=== PATIENT | female | born 1990 | race American Indian/Alaskan Native ===

== ENCOUNTER 2020-04-10 21:07 | Emergency (ER) | payer SELFPAY ==
[2020-04-10] MEDS ORDERED: HYDROcodone/ACETAMINOPHEN 5-325 MG TAB PO ONE (22:05)
--- NOTE | 2020-04-10 22:14 | Emergency Department Report ---
ED Fall HPI - General Chief Complaint: Fall Stated Complaint: SLIP AND FALL GROIN PAIN RT SIDE PAIN Time Seen by Provider: 04/10/20 21:58 Source: patient, EMS Mode of arrival: Wheelchair - History of Present Illness Initial Comments: Ms. Murphy is a 30 y/o aaf with presents for right pelvic and hip pain s/p GLF , slip and fall in store, there was no loc, pt was ambulatory after fall, arrived to ed via pov, there is no numbness, no tingling, no hematuria, no deformity, gait is steady. pain described as 5/10 aching, pt is ambulatory with minimal gait disturbance. T:98.2, P111, 18, bp:151/121 Complaint: fall Onset/Timin -: hour(s) Fall From: standing When Fall Occurred: 1-3 hours [employer] Fall Witnessed: yes, by family Place Fall Occurred: other ([facility]) Loss of Consciousness: none Prolonged Down Time?: no Symptoms Prior to Fall: none Location: pelvis Severity: moderate Severity scale (0 -10): 4 Quality: aching Context: tripped/slipped - Related Data Previous Rx's Medication Instructions Recorded Last Taken Type Cyclobenzaprine [Flexeril] 10 mg PO TID PRN #30 tablet 04/10/20 Unknown Rx Naproxen 500 mg PO BID PRN #30 tablet 04/10/20 Unknown Rx Allergies Allergy/AdvReac Type Severity Reaction Status Date / Time No Known Allergies Allergy Unverified 04/10/20 21:13 ED Review of Systems ROS: Stated complaint: SLIP AND FALL GROIN PAIN RT SIDE PAIN Other details as noted in HPI Constitutional: denies: chills, fever Eyes: denies: eye pain, eye discharge, vision change ENT: denies: ear pain, throat pain Respiratory: denies: cough, shortness of breath, wheezing Cardiovascular: denies: chest pain, palpitations Endocrine: no symptoms reported Gastrointestinal: denies: abdominal pain, nausea, diarrhea Genitourinary: denies: urgency, dysuria, frequency, hematuria, discharge Musculoskeletal: denies: back pain, joint swelling, arthralgia, myalgia Skin: denies: rash, lesions Neurological: denies: headache, weakness, paresthesias Psychiatric: denies: anxiety, depression Hematological/Lymphatic: denies: easy bleeding, easy bruising ED Past Medical Hx - Past Medical History Hx Hypertension: Yes Hx Asthma: Yes - Surgical History Past Surgical History?: No - Social History Smoking Status: Never Smoker Substance Use Type: None - Medications Home Medications: Home Medications Medication Instructions Recorded Confirmed Last Taken Type Cyclobenzaprine [Flexeril] 10 mg PO TID PRN #30 tablet 04/10/20 Unknown Rx Naproxen 500 mg PO BID PRN #30 tablet 04/10/20 Unknown Rx ED Physical Exam - General Limitations: No Limitations General appearance: alert, in no apparent distress - Head Head exam: Present: normocephalic. Absent: normal inspection - Eye Eye exam: Present: normal appearance, PERRL, EOMI Pupils: Present: normal accommodation - ENT ENT exam: Present: mucous membranes moist - Neck Neck exam: Present: normal inspection, full ROM. Absent: tenderness, lymphadenopathy, thyromegaly - Respiratory Respiratory exam: Present: normal lung sounds bilaterally. Absent: respiratory distress, wheezes, stridor, chest wall tenderness - Cardiovascular Cardiovascular Exam: Present: regular rate, normal rhythm, normal heart sounds. Absent: systolic murmur, diastolic murmur, rubs, gallop - GI/Abdominal GI/Abdominal exam: Present: soft, normal bowel sounds. Absent: distended, tende rness, bruit, hernia - Rectal Rectal exam: Present: deferred - Extremities Exam Extremities exam: Present: normal inspection, full ROM, tenderness (right hip ), normal capillary refill - Back Exam Back exam: Present: normal inspection, full ROM. Absent: tenderness, CVA tenderness (R), CVA tenderness (L), muscle spasm, paraspinal tenderness, vertebral tenderness, rash noted - Neurological Exam Neurological exam: Present: alert, oriented X3, CN II-XII intact, normal gait, reflexes normal. Absent: motor sensory deficit - Expanded Neurological Exam Expanded Patient oriented to: Present: person, place, time Speech: Present: fluid speech Motor strength exam: RUE: 5, LUE: 5, RLE: 5, LLE: 5 Best Eye Response (Claudette): (4) open spontaneously Best Motor Response (Claudette): (6) obeys commands Best Verbal Response (Claudette): (5) oriented [place] Total: 15 - Psychiatric Psychiatric exam: Present: normal affect, normal mood - Skin Skin exam: Present: warm, dry, intact, normal color. Absent: rash ED Course Vital Signs 04/10/20 04/10/20 21:13 23:10 Temperature 98.2 F 98.3 F Pulse Rate 111 H 86 Respiratory 18 18 Rate Blood Pressure 153/121 Blood Pressure 130/80 [Left] O2 Sat by Pulse 100 100 Oximetry ED Medical Decision Making - Radiology Data Radiology results: report reviewed, image reviewed Findings Reporting MD: Stacy Baird Dictation Time: April 10, 2020 21:50 Bee Worker: Not available Photographer Finish Date: EXAMINATION: Pelvic radiograph, one view CLINICAL INFORMATION: Pelvic pain after fall COMPARISON: None. FINDINGS: There is no evidence of displaced pelvic fracture or hip dislocation on today's single view. An IUD overlies the midline pelvis. IMPRESSION: No radiographic evidence of displaced pelvic fracture. Signer Name: Stacy Baird MD Signed: 04/10/2020 9:50 PM Workstation Name: [id number] - Medical Decision Making xray pelvis normal no fracture no soft tissue abnormality, pain is improved, plan: dc to home with rx for nsaids, muscle relaxant, follow up with primary care doctor in 2-3 days, pt verbalized agreement and understanding of same. vital signs improved. Critical care attestation.: If time is entered above; I have spent that time in minutes in the direct care of this critically ill patient, excluding procedure time. ED Disposition Clinical Impression: Strain of right groin Disposition: DC-01 TO HOME OR SELFCARE Is pt being admited?: No Does the pt Need Aspirin: No Condition: Stable Instructions: Groin Strain (ED) Prescriptions: Cyclobenzaprine [Flexeril] 10 mg PO TID PRN #30 tablet PRN Reason: Spasms Naproxen 500 mg PO BID PRN #30 tablet PRN Reason: pain Referrals: MELANY ARDON MD [Staff Physician] - 3-5 Days MATTEO FERRER MD [Staff Physician] - 3-5 Days Forms: Work/School Release Form(ED) Time of Disposition: 23:19
--- NOTE | 2020-04-10 22:54 | XRay Report ---
EXAMINATION: Pelvic radiograph, one view CLINICAL INFORMATION: Pelvic pain after fall COMPARISON: None. FINDINGS: There is no evidence of displaced pelvic fracture or hip dislocation on today's single view . An IUD overlies the midline pelvis. IMPRESSION: No radiographic evidence of displaced pelvic fracture. Signer Name: Stacy Baird MD Signed: 04/10/2020 10:50 PM Workstation Name: [id number] [email or web address]
[2020-04-10 23:10] VITALS: BP 130/80
== END 2020-04-10 23:40 | disposition home or self-care (01) ==
LOC: ED 21:07
DX: S39.011A Strain of muscle, fascia and tendon of abdomen, initial encounter (principal); X58.XXXA Exposure to other specified factors, initial encounter; Y93.89 Activity, other specified; Y92.89 Other specified places as the place of occurrence of the external cause; Y99.8 Other external cause status
CPT/HCPCS: 72170; 99283

== ENCOUNTER 2020-10-27 10:12 | Emergency (ER) | payer SELFPAY ==
[2020-10-27 10:56] VITALS: BP 169/117
[2020-10-27] MEDS ORDERED: ACETAMINOPHEN 325 MG TAB ONE (11:29)
[2020-10-27] MEDS ORDERED: ACETAMINOPHEN 500 MG TAB PO ONE (11:29)
--- NOTE | 2020-10-27 11:29 | Event Note ---
ED Screening Note Date of service: 10/27/20 Time: 11:03 ED Screening Note: 30-year-old -[place] female presents to the emergency room complaining difficulty breathing at night. Patient reports she is Covid positive. She reports that she ran out of her blood pressure medicine and needs a refill on her albuterol inhaler solution. Patient was noted to have a temperature of 101, blood pressure 169/117 heart rate 123 respirations of 22. This initial assessment/diagnostic orders/clinical plan/treatment(s) is/are subject to change based on patients health status, clinical progression and re- assessment by fellow clinical providers in the ED. Further treatment and workup at subsequent clinical providers discretion. Patient/guardian urged not to elope from the ED as their condition may be serious if not clinically assessed and managed. Initial orders include:
--- NOTE | 2020-10-27 11:50 | XRay Report ---
CHEST 2 VIEWS INDICATION / CLINICAL INFORMATION: sob. COMPARISON: None available. FINDINGS: SUPPORT DEVICES: None. HEART / MEDIASTINUM: No significant abnormality. LUNGS / PLEURA: No significant pulmonary or pleural abnormality. No pneumothorax. ADDITIONAL FINDINGS: No significant additional findings. IMPRESSION: 1. No acute findings. Signer Name: Vj Kunz MD Signed: 10/27/2020 11:45 AM Workstation Name: [id number]
[2020-10-27 12:29] LABS: Hematocrit 45.3 % (30.3-42.9); Hemoglobin 14.9 gm/dl (10.1-14.3); Mean Corpuscular HGB Conc 33 % (30-34); Mean Corpuscular Volume 81 fl (79-97); Platelet Count 253 K/mm3 (140-440); Red Blood Count 5.62 M/mm3 (3.65-5.03); Red Cell Distribution Width 15.2 % (13.2-15.2)
[2020-10-27 12:49] LABS: Alanine Aminotransferase 12 units/L (7-56); Albumin 3.8 g/dL (3.9-5); BUN/Creatinine Ratio 6; Blood Urea Nitrogen 6 mg/dL (7-17); Calcium 9.3 mg/dL (8.4-10.2); Hemolysis Index 0
== END 2020-10-27 17:28 | disposition left against medical advice (07) ==
LOC: ED 10:12
DX: R06.00 Dyspnea, unspecified (principal); Z53.21 Procedure and treatment not carried out due to patient leaving prior to being seen by health care provider
CPT/HCPCS: 36415; 71046; 80053; 85027